=== PATIENT | male | born 1990 | race African-American/Black ===

== ENCOUNTER 2021-05-06 15:14 | Emergency (ER) | payer MEDICAID ==
[~2021-05-06] VITALS: Ht 185.4 cm; Wt 100.0 kg
[2021-05-06 15:26] VITALS: BP 113/74
[2021-05-06] MEDS ORDERED: FLUORESCEIN SODIUM 1MG/STRIP LEFTEYE ONE (15:45)
[2021-05-06] MEDS ORDERED: TETRACAINE 0.5% OPHTH DROPS 4ML LEFTEYE ONE (15:45)
[2021-05-07] MEDS ORDERED: GENT5DRO5 EACHEYE (10:41)
[2021-05-07] MEDS ORDERED: TOBRDO EACHEYE (10:41)
[2021-05-07] MEDS ORDERED: CARB192C OT (10:42)
== END 2021-05-06 18:10 | disposition left against medical advice (07) ==
LOC: ER 15:14
DX: H10.9 Unspecified conjunctivitis (principal)
CPT/HCPCS: 99281

== ENCOUNTER 2021-05-07 08:52 | Emergency (ER) | payer MEDICAID ==
[~2021-05-07] VITALS: Ht 185.4 cm; Wt 100.0 kg
[2021-05-07 08:55] VITALS: BP 130/66
[2021-05-07] MEDS ORDERED: GENT5DRO5 EACHEYE (10:41)
[2021-05-07] MEDS ORDERED: TOBRDO EACHEYE (10:41)
[2021-05-07] MEDS ORDERED: CARB192C OT (10:42)
== END 2021-05-07 11:06 | disposition home or self-care (01) ==
LOC: ER 08:52
DX: H10.023 Other mucopurulent conjunctivitis, bilateral (principal); H61.23 Impacted cerumen, bilateral
CPT/HCPCS: 99283

== ENCOUNTER 2021-12-12 14:56 | Emergency (ER) | payer MEDICAID ==
[~2021-12-12] VITALS: Ht 185.4 cm; Wt 107.0 kg
[~2021-12-12 14:56] MED LIST: CARB192C OT; GENT5DRO5 EACHEYE; TOBRDO EACHEYE
[2021-12-12 15:48] VITALS: BP 150/85
== END 2021-12-12 15:30 | disposition left against medical advice (07) ==
LOC: ER 14:56
DX: Z53.21 Procedure and treatment not carried out due to patient leaving prior to being seen by health care provider (principal)